=== PATIENT | female | born 1990 | race African-American/Black ===

== ENCOUNTER 2018-08-16 09:46 | Emergency (ER) | payer OTHER ==
[~2018-08-16] VITALS: Ht 152.4 cm; Wt 50.8 kg
[2018-08-16] MEDS ORDERED: PROMETH-CODEIN 65 ML PO (10:59)
[2018-08-16] MEDS ORDERED: ZOFRAN ODT4 MG PO (10:59)
[2018-08-16] MEDS ORDERED: IBUPROFEN 600600 M1 PO (10:59)
[2018-08-16 11:21] VITALS: BP 131/90
== END 2018-08-16 11:21 | disposition home or self-care (01) ==
LOC: ER 09:46
DX: J10.1 Influenza due to other identified influenza virus with other respiratory manifestations (principal); F17.210 Nicotine dependence, cigarettes, uncomplicated